=== PATIENT | female | born 1945 | race Caucasian/White ===

== ENCOUNTER 2020-04-13 14:44 | Outpatient (CLI) | payer MEDICARE, MEDICAID, SELFPAY ==
--- NOTE | 2020-04-13 14:51 | MM_ITS ---
WS: [id number] Exam: [place] [id number] Date/Time of Exam: 04/13/2020 3:13 PM Reason For Exam: SCREENING VIEWS: MLO and CC views both breasts. Comparison made with prior exam of 12/13/2016 and 01/07/2019. Findings: There was no sign of mass, architectural distortion or suspicious calcification in either breast. Fa tty MM/[place] [id number] Impression: BI-RADS: 2-Benign FOLLOW-UP: 1 Year Follow-up This mammogram was also analyzed by the Computer Aided Detection System R2 Imag e Day Care Assistant.
--- NOTE | 2020-04-13 15:37 | XR_ITS ---
WS: [id number] Exam: XR DEXA axial skeleton* [id number] Date/Time of Exam: 04/13/2020 3:52 PM Reason For Exam: ASYMTOMATIC MENOPAUSAL STATE DEXA BONE DENSITOMETRY [employer] The L1-L4 bone mineral density measures 1.064 g/cm2. This corresponds to a T score of -1.0 and Z scor e of 0.6. Left femoral neck bone mineral density measures 0.782 g/cm2. This corresponds to T score of -1.8 and Z score of -0.3. Right femoral neck bone mineral density measures 0.808 g/cm2. This corresponds to a T score of -1.6 a nd Z score of -0.1. Mean femoral neck bone mineral density measures 0.795 g/cm2. This corresponds to a T score of -1.7 an d Z score of -0.2 XR/XR DEXA axial skeleton* [id number] IMPRESSION: Bone mineral density lies in the osteopenic range. Refer to detailed summary.
== END 2020-04-13 14:45 | disposition home or self-care (01) ==
LOC: RADSHAW 14:50
PROVIDERS: PCP Family Medicine; Visit Provider Family Medicine
DX: Z12.31 Encounter for screening mammogram for malignant neoplasm of breast (principal); Z78.0 Asymptomatic menopausal state
CPT/HCPCS: 77067; 77080

== ENCOUNTER 2021-05-03 14:59 | Outpatient (CLI) | payer MEDICARE, MEDICAID, SELFPAY ==
--- NOTE | 2021-05-03 15:08 | MM_ITS ---
WS: [id number] BILATERAL SCREENING DIGITAL MAMMOGRAM WITH CAD HISTORY: SCREENING COMPARISON: None available. Bilateral CC and MLO views submitted. Computer aided detection analyzed. Breast composition: There are scattered areas of fibroglandular density. No suspicious masses, microc alcifications or architectural distortion. Vascular calcifications within each breast. MM/[place] [id number] IMPRESSION: BI-RADS: 2-Benign FOLLOW UP: 1 Year Follow-up
== END 2021-05-03 15:00 | disposition home or self-care (01) ==
LOC: RADSHAW 15:06
PROVIDERS: PCP Family Medicine; Visit Provider Family Medicine
DX: Z12.31 Encounter for screening mammogram for malignant neoplasm of breast (principal)
CPT/HCPCS: 77067

== ENCOUNTER 2021-12-03 05:35 | Day surgery (SDC) | payer MEDICARE, MEDICAID, SELFPAY ==
[2021-12-01 12:39] VITALS: BMI 31.2
[2021-12-03 06:12] VITALS: BP 134/68; PULSE 100; RESP 18; TEMP 36.1; O2SAT 92
[2021-12-03] MEDS: sodium chloride 0.9% 1,000 ML 30 ML IV (06:12)
--- NOTE | 2021-12-03 06:46 | P.HP_ITS ---
Same Day Surgery H&P Indication for Procedure/HPI DATE OF PROCEDURE: December 03, 2021 CHIEF COMPLAINT/INDICATIONFOR SURGICAL PROCEDURE: Screening colonoscopy PREOP DIAGNOSIS: Screening colonoscopy PLANNED PROCEDURE: Operation Date: 12/03/21 07:30 Proposed Procedures p Colonoscopy 43361/z12.11(Not Applicable) - Russ Horvath MD This is a pleasant 76 years old female patient referred to my practice for screening, patient had 10 years ago and was reported as normal yet she did mention that they found a small spot of insignificance. Denies bleeding per rectum or history of colon cancer. Previous laparoscopic cholecystectomy and hysterectomy ROS All systems have been reviewed negative except as for the above or per problem list. Medications/Allergies* Home Medications Medication Instructions Recorded Confirmed Type amitriptyline 50 mg tablet 50 mg PO QPM 12/01/21 12/03/21 History amlodipine 2.5 mg tablet 2.5 mg PO DAILY 12/01/21 12/03/21 History aspirin 81 mg tablet,delayed 81 mg PO DAILY 12/01/21 12/03/21 History release citalopram 10 mg tablet 10 mg PO DAILY 12/01/21 12/03/21 History famotidine 20 mg tablet 20 mg PO DAILY 12/01/21 12/03/21 History fluticasone propionate 50 2 spray intranasal DAILY PRN 12/01/21 12/03/21 History mcg/actuation nasal Allergic Symptoms spray,suspension lisinopril 20 mg tablet 20 mg PO DAILY 12/01/21 12/03/21 History metformin 500 mg tablet 500 mg PO DAILY 12/01/21 12/03/21 History simvastatin 10 mg tablet 10 mg PO QPM 12/01/21 12/03/21 History Allergies/Adverse Reactions Allergy/AdvReac Type Severity Reaction Status Date / Time No Known Allergies Allergy Verified 12/03/21 06:50 Current Medications: Generic Name Dose Route Start Last Admin Trade Name Freq PRN Reason Stop Dose Admin Sodium Chloride 1,000 mls @ 30 mls/hr 12/03/21 06:00 12/03/21 06:12 Sodium Chloride 0.9% IV 12/04/21 05:59 30 mls/hr .Q24H ROBERT Administration Pertinent Exam Findings alert, oriented x 3, clear to auscultation bilaterally, regular rate & rhythm and procedure specific exam findings (Abdominal examination nontender nondistended soft) Recommendations Surgery/Procedure today (Colonoscopy with possible biopsy) Other Plans: Plan of care; After thorough history and physical examination and reviewing the chart, plan to perform screening colonoscopy. I discussed with the patient in details the risks,benefits,alternatives and indications.The risk of aspiration, bleeding, soft tissue injury, perforation of the colon and other potential concomitant complications were explained to the patient in details,also the potential need for Laproscoy/Laparotomy to repair any related complications including but not limited to colectomy and or Closotomy.The patient understood this well and did agree to proceed. Rationale was carefully and clearly discussed with the patient.Appropriate informed consent have been reviewed and signed All questions have been answered and all concerns have been addressed to patient's satisfaction. Verbal and written Instructions were given to the patient for colonoscopy prep Coding Level of Care Code Acute Electric Motor Mechanic for Stefany Mcdonald
--- NOTE | 2021-12-03 06:57 | P.ANESASSM_ITS ---
Pre-Anesthetic Assessment Height/Weight: Height 1.52 m Weight 72.575 kg Temp Pulse Resp BP Pulse Ox O2 Del Method 97.0 F L 100 18 134/68 92 12/03/21 06:12 12/03/21 06:12 12/03/21 06:12 12/03/21 06:12 12/03/21 06:12 12/03/21 06:12 Preop Diagnosis: Screening colonoscopy Operation Date: 12/03/21 07:30 Proposed Procedures p Colonoscopy 03975/z12.11(Not Applicable) - Russ Horvath MD Was Beta Allie taken within 24 hours: N/A (took BP meds last night) Was Clonidine taken within 24 hours: N/A Last intake: Intake Last Liquid Date 12/02/21 Last Liquid Time 18:00 Last Solid Date 12/01/21 Last Solid Time 18:00 Last Intake: 23:00 Social No tobacco Exam alert Airway Submandibular: within normal limits Cervical ROM: within normal limits Mallampati: Class I Dentition: false History/ROS No significant history except as noted Pulmonary None reported CV/HEM None reported denies chest pain None reported Hepatic None reported GI Gastroesophageal Reflux Disease occasionally have symptoms Metabolic Diabetes Mellitus [facility] [place] Osteoarthritis/DJD (arthritis) Neuropsych Depression Anesthetic Plan ASA status: 2 Anesthesia: MAC Risk of > 500 ml blood loss (7ml/kg in children): No Medications/Allergies Home Medications Medication Instructions Recorded Confirmed Last Taken Type amitriptyline 50 mg tablet 50 mg PO QPM 12/01/21 12/03/21 12/02/21 History amlodipine 2.5 mg tablet 2.5 mg PO DAILY 12/01/21 12/03/21 12/02/21 History aspirin 81 mg tablet,delayed 81 mg PO DAILY 12/01/21 12/03/21 12/02/21 History release citalopram 10 mg tablet 10 mg PO DAILY 12/01/21 12/03/21 12/02/21 History famotidine 20 mg tablet 20 mg PO DAILY 12/01/21 12/03/21 12/02/21 History fluticasone propionate 50 2 spray intranasal DAILY PRN 12/01/21 12/03/21 12/02/21 History mcg/actuation nasal Allergic Symptoms spray,suspension lisinopril 20 mg tablet 20 mg PO DAILY 12/01/21 12/03/2112/02/22 History metformin 500 mg tablet 500 mg PO DAILY 12/01/21 12/03/21 12/02/21 History simvastatin 10 mg tablet 10 mg PO QPM 12/01/21 12/03/21 12/02/21 History Allergies Allergy/AdvReac Type Severity Reaction Status Date / Time No Known Allergies Allergy Verified 12/03/21 06:50 Current Medications Generic Name Dose Route Start Last Admin Trade Name Freq PRN Reason Stop Dose Admin Sodium Chloride 1,000 mls @ 30 mls/hr 12/03/21 06:00 12/03/21 06:12 Sodium Chloride 0.9% IV 12/04/21 05:59 30 mls/hr .Q24H ROBERT Administration Data Anesthesia Cardiac Studies: No Data to Display
[2021-12-03 07:47] VITALS: BP 133/76; PULSE 85; RESP 16; TEMP 36.6; O2SAT 91
[2021-12-03 07:56] VITALS: BP 101/87; PULSE 81; RESP 18; O2SAT 91
--- NOTE | 2021-12-03 08:15 | ANE.PACU2 ---
Inpatient post-anesthesia follow up: Airway intact: Yes Vital signs: Temperature 97.8 F Pulse Rate 81 Respiratory Rate 18 Blood Pressure 101/87 Pulse Oximetry 91 Oxygen Delivery Me thod Room Air Oxygen Flow Rate Fraction of Inspir ed Oxygen Hydration adequate: Yes Nausea and vomiting: No Pain level: 1 Mental status: Baseline
== END 2021-12-03 08:10 | disposition home or self-care (01) ==
PROVIDERS: PCP Family Medicine; Visit Provider Surgery
PROC: 0DJD8ZZ Inspection of Lower Intestinal Tract, Via Natural or Artificial Opening Endoscopic (ICD-10-PCS; CPT 45378; principal; 2021-12-03 07:30)
DX: Z12.11 Encounter for screening for malignant neoplasm of colon (principal); K21.9 Gastro-esophageal reflux disease without esophagitis; E11.9 Type 2 diabetes mellitus without complications; Z79.84 Long term (current) use of oral hypoglycemic drugs; F32.A Depression, unspecified; Z79.82 Long term (current) use of aspirin
CPT/HCPCS: G0121; J2704; J7030

== ENCOUNTER 2022-06-10 12:53 | Outpatient (CLI) | payer MEDICARE, MEDICAID, SELFPAY ==
--- NOTE | 2022-06-10 13:16 | MM_ITS ---
WS: [id number] BILATERAL 3D TOMOSYNTHESIS DIGITAL SCREENING MAMMOGRAPHY WITH CAD CLINICAL INFORMATION: SCREENING HISTORY: Screening mammogram. No current complaints. COMPARISON: May 03, 2021 TECHNIQUE: Bilateral CC and MLO views. FINDINGS: Scattered fibroglandular densities bilaterally. No suspicious focal mass, asymmetry, calcifications, or architectural distortion. No evidence of malignancy. Vascular calcification. MM/[place] [id number] IMPRESSION: BI-RADS: 2-Benign FOLLOW UP: 1 Year Follow-up Recommend return to annual screening mammography.
== END 2022-06-10 12:54 | disposition home or self-care (01) ==
LOC: RAD 12:57
PROVIDERS: PCP Family Medicine; Visit Provider Family Medicine
DX: Z12.31 Encounter for screening mammogram for malignant neoplasm of breast (principal)
CPT/HCPCS: 77063; 77067

== ENCOUNTER 2022-09-20 11:42 | Outpatient (CLI) | payer MEDICARE, MEDICAID, SELFPAY ==
--- NOTE | 2022-09-20 11:50 | XR_ITS ---
WS: [id number] Right shoulder, 3 views, 09/20/2022 Clinical Data: PAIN IN RIGHT SHOULDER Comparison: None. Findings: No fractures or dislocations are seen. The AC joint is normal. The adjacent right clavicle, right sca pula and ribs are normal. The soft tissues are unremarkable. XR/XR shoulder RT min 2V* [id number] Impression: Negative right shoulder.
== END 2022-09-20 11:43 | disposition home or self-care (01) ==
LOC: RAD 11:45
PROVIDERS: PCP Family Medicine; Visit Provider Family Medicine
DX: M25.511 Pain in right shoulder (principal)
CPT/HCPCS: 73030

== ENCOUNTER 2023-06-12 13:57 | Outpatient (CLI) | payer MEDICARE, MEDICAID, SELFPAY ==
--- NOTE | 2023-06-12 14:08 | MM_ITS ---
WS: [id number] VIEWS: MLO and CC views both breasts. 3D digital tomosynthesis is also included in this exam. Comparison made with prior exam of 03/20/2014, 12/13/2016, 12/27/2017, 01/07/2019, 04/13/2020, 05/03/2021, 06/10/2022.. Findings: There was no sign of mass, architectural distortion or suspicious calcification in either breast. The re are scattered areas of fibroglandular density Impression: MM/[place] [id number] BI-RADS: 2-Benign finding. FOLLOW-UP: 1 Year Follow-up This mammogram was also analyzed by the Computer Aided Detection System R2 Imag e Booster Station Operator.
== END 2023-06-12 13:58 | disposition home or self-care (01) ==
LOC: RAD 13:58
PROVIDERS: PCP Family Medicine; Visit Provider Family Medicine
DX: Z12.31 Encounter for screening mammogram for malignant neoplasm of breast (principal); R92.323 Mammographic fibroglandular density, bilateral breasts
CPT/HCPCS: 77063; 77067

== ENCOUNTER 2023-12-25 14:31 | Outpatient (CLI) | payer MEDICARE, MEDICAID, SELFPAY ==
--- NOTE | 2023-12-25 14:37 | XR_ITS ---
WS: [id number] DEXA (DUAL ENERGY X-RAY ABSORPTIOMETRY) Bone mineral density was performed using a [employer] machine. HISTORY: ASYMPTOMATIC MENOPAUSAL STATE COMPARISON: 04/13/2020 Lumbar spine BMD (L1-L4): 1.204 g/cm2 T score: 0.2 Z score: 1.6 Total hip BMD: Left: 0.761 g/cm2. T score: -2.0 Z score: -0.4 Right: 0.836 g/cm2. T score: -1.4 Z score: 0.2 10 year probability of a major osteoporotic fracture is 30.3%. Compared to the prior study from 04/13/2020. Lumbar spine bone mineral density has increased by 13.2%. Bilateral hips bone mineral density has increased by 0.4%. XR/XR DEXA axial skeleton* [id number] IMPRESSION: OSTEOPENIA based upon the WHO classification for females. Significant increase in bone mineral density within the lumbar spine since the prior study. No significant change in bone mineral density within the hips.
== END 2023-12-25 14:32 | disposition home or self-care (01) ==
LOC: RAD 14:32
PROVIDERS: PCP Family Medicine; Visit Provider Family Medicine
DX: Z78.0 Asymptomatic menopausal state (principal); M85.80 Other specified disorders of bone density and structure, unspecified site
CPT/HCPCS: 77080

== ENCOUNTER → 2024-09-06 09:10 | Outpatient (BNVA) | payer MEDICARE, MEDICAID, SELFPAY | PROVIDERS: PCP Family Medicine; Visit Provider Internal Medicine | DX: E11.9 Type 2 diabetes mellitus without complications (principal) | CPT/HCPCS: 36415; 80053; 80061; 82044; 83036 ==

== ENCOUNTER 2024-11-11 08:34 | Outpatient (CLI) | payer MEDICARE, MEDICAID, SELFPAY ==
--- NOTE | 2024-11-11 09:15 | CT_ITS ---
WS: [email or web address] LDCT LUNG CANCER SCREENING TECHNIQUE: Noncontrast CT of the chest with coronal and sagittal reformatted images. CLINICAL INFORMATION: NICOTINE DEPENDENCE, CIGARETTES, UNCOMPLICATED COMPARISON: None. DLP: 69.60 mGy.cm DIvol: Mean CTDIvol: 1.50 (mGy) All CT scans at [facility] use at least one of these dose optimization techniques: automated exposure control; mA and/or kV adjustment per patient size (includes targeted exams where dose is matched to clinical indication); or iterative reconstruction. FINDINGS: Moderate chronic emphysematous changes. Calcified granuloma RIGHT lower lobe. A few tiny subcentimeter nodules more prominent in the LEFT upper and LEFT lower lobe laterally. Subsegmental atelectasis LEFT lower lobe. Aortic calcification. Coronary calcification. Normal sized mediastinal lymph nodes. Calcified RIGHT hilar and subcarinal lymph nodes. Tiny esophageal hiatal hernia. Splenic granulomas. Cholecystectomy clips. Adrenal glands are normal. Mild thoracic curve. Hypertrophic changes thoracic spine. CT/CT lung screening [id number] IMPRESSION: LUNG-RADS: 2-Benign Appearance or Behavior FOLLOW UP: 12 Month: Continue annual screening with LDCT
== END 2024-11-11 08:35 | disposition home or self-care (01) ==
LOC: RAD 08:35
PROVIDERS: PCP Family Medicine; Visit Provider Family Medicine
DX: Z12.2 Encounter for screening for malignant neoplasm of respiratory organs (principal); F17.210 Nicotine dependence, cigarettes, uncomplicated; J98.11 Atelectasis; J84.10 Pulmonary fibrosis, unspecified
CPT/HCPCS: 71271

== ENCOUNTER → 2025-01-31 09:56 | Outpatient (BNVA) | payer MEDICARE, MEDICAID, SELFPAY | PROVIDERS: PCP Family Medicine; Visit Provider Internal Medicine | DX: E11.65 Type 2 diabetes mellitus with hyperglycemia (principal); E78.2 Mixed hyperlipidemia; Z79.4 Long term (current) use of insulin | CPT/HCPCS: 99214 ==

== ENCOUNTER 2025-02-11 08:21 | Outpatient (CLI) | payer MEDICARE, MEDICAID, SELFPAY ==
[2025-02-11 09:10] LABS: Estmated Average Glucose 209; Hemoglobin A1C 8.9 % (4.0-6.0)
[2025-02-11 09:11] LABS: Alanine Aminotransferase 21 U/L (0-33); Albumin Level 4.4 g/dL (3.5-5.2); Alkaline Phosphatase 128 U/L (35-105); Anion Gap 14.1 (5-19); Aspartate Amino Transferase 24 U/L (0-32); Blood Urea Nitrogen 14 mg/dL (8-23); Calcium 9.3 mg/dL (8.5-10.5); Carbon Dioxide 29 mmol/L (22-29); Chloride 102 mmol/L (98-107); Cholesterol 174 mg/dL (0-200); Globulin 3.0 g/dL (1.3-4.6); Glucose 184 mg/dL (65-115); HDL Cholesterol 63 mg/dL (60-100); Osmolality Calculated 297 mOsm/kg (285-295); Potassium 4.1 mmol/L (3.5-5.1); Sodium 141 mmol/L (136-145); Total Protein 7.4 g/dL (6.6-8.7); Triglycerides 150 mg/dL (0-150)
[2025-02-11 09:12] LABS: Creatinine Urine, Random 137 mg/dL (28-217); Microalbum Creatinine Ratio Ur 15 mg/dL (0-20)
== END 2025-02-11 08:22 | disposition home or self-care (01) ==
LOC: LAB 08:24
PROVIDERS: PCP Family Medicine; Visit Provider Internal Medicine
DX: E11.65 Type 2 diabetes mellitus with hyperglycemia (principal); E78.2 Mixed hyperlipidemia
CPT/HCPCS: 36415; 80053; 80061; 82044; 83036